=== PATIENT | male | born 2000 | race Caucasian/White ===

== ENCOUNTER 2021-08-24 01:25 | Emergency (ER) | payer MEDICAID ==
[2021-08-24] MEDS ORDERED: Lidocaine 1% 5 ML VIAL INJECT ONE (01:50)
[2021-08-24] MEDS ORDERED: Diphtheria,Pertussis(Acell),Tetanus Vaccine 0.5 ML Syringe IM ONE (02:05)
== END 2021-08-24 02:18 | disposition home or self-care (01) ==
LOC: VM.ED 01:25
DX: S61.211A Laceration without foreign body of left index finger without damage to nail, initial encounter (principal); Z23 Encounter for immunization; W26.0XXA Contact with knife, initial encounter
CPT/HCPCS: 12001; 90471; 90715; 99282-25; 99283